=== PATIENT | female | born 1930 | race Caucasian/White ===

== ENCOUNTER 2017-03-02 16:41 | Emergency (ER) | payer MEDICARE ==
[~2017-03-02] VITALS: Ht 162.6 cm; Wt 61.8 kg
[~2017-03-02 16:41] MED LIST: LEVO88TA4 PO; LORA0.5T PO; METO25TA6 PO; OMEP20CA11 PO; ONDA-53 PO; PROM25TA14 PO; RANI300T4 PO; SERT50TA9 PO; SIMV40TA5 PO; TRAM50TA2 PO; TRAZ-115 PO
[2017-03-02 16:44] VITALS: BP 198/93; PULSE 85; RESP 20; O2SAT 99
== END 2017-03-02 19:25 | disposition left against medical advice (07) ==
LOC: SED 16:41
DX: Z53.21 Procedure and treatment not carried out due to patient leaving prior to being seen by health care provider (principal)

== ENCOUNTER 2017-03-03 08:27 | Emergency (ER) | payer MEDICARE ==
[~2017-03-03] VITALS: Ht 160 cm; Wt 61.4 kg
[2017-03-03 08:34] VITALS: BP 176/82; PULSE 94; RESP 16; O2SAT 99
--- NOTE | 2017-03-03 09:03 | ED.REPORT ---
HPI-General Illness Date of Service Mar 03, 2017 ED Provider: Dr. Wolf Pt is an 86 year old female with a hx of CAD and HTN presenting to the ED complaining of malaise. She reports that she has had anxiety for the past few months. Her PCP put her on Lorazepam for the anxiety, but about 2 weeks ago she stopped taking it and now reports shaking, nausea, diarrhea (3-4 episodes), and a bit of abdominal pain. She stopped the Lorazepam because she found out it was a controlled substance. Denies any chest pain, SOB, vomiting, bloody stool, or any other symptoms. Nursing Notes Stated Complaint: NAUSEA/WITHDRAWAL Chief Complaint: Female Abdominal Pain Nursing Notes Reviewed: Yes Allergies: Coded Allergies: amoxicillin (Verified Allergy, Mild, LIPS BLISTER, 01/27/16) Scheduled Levothyroxine (Levothyroxine) 88 Mcg Tablet 88 MCG PO DAILY Metoprolol Tartrate (Metoprolol Tartrate) 25 Mg Tablet 25 MG PO BID Omeprazole (Omeprazole) 20 Mg Capsule.dr 20 MG PO DAILY Sertraline HCl (Sertraline) 50 Mg Tablet 50 MG PO DAILY Simvastatin (Simvastatin) 40 Mg Tablet 40 MG PO DAILY Trazodone (Trazodone) 50 Mg Tablet 150 MG PO HS Scheduled PRN Lorazepam (Lorazepam) 0.5 Mg Tablet 0.5 MG PO Q12H PRN PRN For Anxiety Ondansetron (Ondansetron) 4 Mg Tablet 4 MG PO Q6H PRN PRN For Nausea Promethazine (Promethazine) 25 Mg Tablet 25 MG PO TID PRN PRN For Nausea Promethazine (Promethazine) 25 Mg Tablet 12.5 MG PO Q6H PRN PRN For Nausea Ranitidine (Ranitidine) 300 Mg Tablet 300 MG PO DAILY PRN PRN For Epigastric Distress Tramadol (Tramadol) 50 Mg Tablet 50 MG PO Q4H PRN PRN For Pain General Time Seen by MD: 09:02 Chief Complaint Other (Nausea) Hx Obtained From: Patient Arrived By: Walk-in Sudden in Onset?: No Onset Occurred: More than a week ago... (2 weeks) Symptom Duration: Since onset Severity: Current: No pain currently Severity: Maximum: No pain Recent Healthcare: No recent doctor visit, No recent hospitalization Similar Sx Previous: No Past Medical History Past Medical History Reports: Coronary artery disease, Hypertension Past Surgical History Cardic Stent Reports: Appendectomy Reports: Tubal ligation Social History Alcohol Use: "Social" Drug Use: Denies drug use Other Social History: Good social support, Local resident Ambulatory Status Independent Review of Systems Full Review of Systems Constitutional: Reports: Malaise Respiratory: Denies: Shortness of breath Cardiovascular: Denies: Chest pain GI: Reports: Abdominal pain, Diarrhea, Nausea, Denies: Bloody/tarry stool, Vomiting Complete sys rev & neg: except as marked. Physical Exam Vital Signs Vital Signs Date Time Temp Pulse Resp B/P Pulse Ox O2 Delivery O2 Flow Rate FiO2 03/03/17 08:34 36.4 94 16 176/82 99 Room Air Initial VS: Reviewed Head / Eyes: Atraumatic, Normocephalic, PERRL ENT: Mucous membranes moist, Conjunctiva normal, No scleral icterus Neck: Supple, Non-tender, Full range of motion Respiratory: Breath sounds normal, Clear to auscultation, No respiratory distress Cardiovascular: Regular rate & rhythm, Heart sounds normal, Intact distal pulses Abdomen / GI: Soft, Non-tender, No guarding, No rebound, No distention Extremities: Vascular intact, Neuro intact, No swelling, No tenderness Skin: Warm, Dry, No cyanosis Neurologic: Alert, Oriented, Nonfocal General/Constitutional: Awake, Alert, Well appearing Distress / Hydration: Positive: Distress mild Psychiatric: Affect NL, Mood NL Abnormal Mood/Affect: Positive: Anxious Agitated Interpretation & Diagnostics Lab Results Interpretation Result Diagram: 03/03/17 1015 03/03/17 1015 Test 03/03/17 10:15 White Blood Count 7.4th/mm3 (3.8-10.1) Red Blood Count 4.12mil/mm3 (3.90-5.20) Hemoglobin 12.6g/dL (12.0-15.6) Hematocrit 36.0% (35.0-46.0) Mean Corpuscular Volume 87.4fL (81-100) Mean Corpuscular Hemoglobin 30.6pg (27.0-35.0) Mean Corpuscular Hemoglobin Concent 35.0% (32.0-37.0) Red Cell Distribution Width 13.0% (12.3-15.4) Platelet Count 303bil/L (150-400) Neutrophils (%) (Auto) 74.6% (40-74) Lymphocytes (%) (Auto) 17.8% (14-46) Monocytes (%) (Auto) 6.2% (4-12) Eosinophils (%) (Auto) 0.7% (0-5) Basophils (%) (Auto) 0.4% (0-3) Sodium Level 137mEq/L (134-144) Potassium Level 4.3mEq/L (3.5-5.2) Chloride Level 100mEq/L (97-108) Carbon Dioxide Level 22mmol/L (18-29) Blood Urea Nitrogen 19mg/dL (8-27) Creatinine 1.24mg/dL (0.57-1.00) Estimat Glomerular Filtration Rate 59mL/min (>59) Glucose Level 137mg/dL (60-99) Calcium Level 9.6mg/dL (8.5-10.1) Magnesium Level 2.1mg/dL (1.6-2.6) Total Bilirubin 0.5mg/dL (0.0-1.2) Aspartate Amino Transf (AST/SGOT) 30U/L (0-50) Alanine Aminotransferase (ALT/SGPT) 17U/L (0-32) Alkaline Phosphatase 63U/L (25-165) Total Protein 6.9g/dL (6.4-8.4) Albumin 4.4g/dL (3.4-5.0) Lipase 22U/L (13-60) Hold Sung Top Tube Received (Received) ECG Interpretation ECG Interpretation: LBBB. Time: 10:54 Interpreted by: ED physician Normal ECG Interpretation: Normal rate (78) Re-Eval/Medical Decision Med Decision/Clinical Course Symptoms sound most consistent with benzodiazepine withdrawal. Labs and EKG are unremarkable. Patient will be discharged. Time of Eval: 10:28 Patient Status: Condition improved Re-Evaluation/Progress Note: Pt still nauseated but is a little improved. Time of Eval: 11:40 Patient Status: Condition improved Re-Evaluation/Progress Note: Pt feels much more relaxed and her nausea is resolved. Discussed plan for discharge. Pt understands and agrees. 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 I think your symptoms are likely from not taking the Lorazepam. You have been given a lower dose of lorazepam to use until you are seen by her regular doctor to prevent withdrawal. Take Zofran as needed for your nausea, and call your primary care doctor tomorrow to refill your Lorazepam prescription. Return to the ER if you develop any new or worsening symptoms. Referrals: Rui Jolly MD (PCP) Scribe Attestation Portions of this note were transcribed by Raymond Ray. I, Dr. Wolf personally performed the history, physical exam and medical decision-making; I reviewed and confirmed the accuracy of the information in the transcribed note. Signed by: Kirti Morley, 03/03/2017 at 1200. copies to: Rui Jolly MD, Timothy S DO Mar 03, 2017 09:03 RAYMOND RAY Mar 03, 2017 09:34
[2017-03-03] MEDS ORDERED: LORazepam 0.5 mg Tablet PO ONE ×2 (09:30→10:00)
[2017-03-03 10:32] LABS: BASOPHILS % (AUTO) 0.4 % (0-3); EOSINOPHILS % (AUTO) 0.7 % (0-5); MONOCYTES % (AUTO) 6.2 % (4-12); Mean Corpuscular Hemoglobin 30.6 pg (27.0-35.0); Mean Corpuscular Volume 87.4 fL (81-100); NEUTROPHILS % (AUTO) 74.6 % (40-74); Platelet Count 303 bil/L (150-400)
[2017-03-03 10:50] LABS: Magnesium 2.1 mg/dL (1.6-2.6)
== END 2017-03-03 12:00 | disposition home or self-care (01) ==
LOC: SED 08:27
DX: R11.0 Nausea (principal); F13.230 Sedative, hypnotic or anxiolytic dependence with withdrawal, uncomplicated; I10 Essential (primary) hypertension; I25.10 Atherosclerotic heart disease of native coronary artery without angina pectoris; Z88.1 Allergy status to other antibiotic agents

== ENCOUNTER 2017-03-04 12:58 | Emergency (ER) | payer MEDICARE ==
[~2017-03-04] VITALS: Ht 162.6 cm; Wt 61.4 kg
[2017-03-04 13:14] VITALS: BP 146/99; PULSE 89; RESP 16; O2SAT 98
--- NOTE | 2017-03-04 13:23 | ED.REPORT ---
HPI-Medication Refill Date of Service Mar 04, 2017 ED Provider: Doris Zaidi History of Present Illness: in May. Having anxiety attacks, taking lorazapam since 10/2016. out of lorazapm, unsure of when she ran out. lives by self. Dr. Schaefer will not refill till the the 6. Nursing Notes Stated Complaint: ANXIETY,NAUSEA Chief Complaint: General Complaint Nursing Notes Reviewed: Yes Allergies: Coded Allergies: amoxicillin (Verified Allergy, Mild, LIPS BLISTER, 03/04/17) Scheduled Levothyroxine (Levothyroxine) 88 Mcg Tablet 88 MCG PO DAILY Metoprolol Tartrate (Metoprolol Tartrate) 25 Mg Tablet 25 MG PO BID Omeprazole (Omeprazole) 20 Mg Capsule.dr 20 MG PO DAILY Sertraline HCl (Sertraline) 50 Mg Tablet 50 MG PO DAILY Simvastatin (Simvastatin) 40 Mg Tablet 40 MG PO DAILY Trazodone (Trazodone) 50 Mg Tablet 150 MG PO HS Scheduled PRN Lorazepam (Lorazepam) 0.5 Mg Tablet 0.5 MG PO Q12H PRN PRN For Anxiety Ondansetron (Ondansetron) 4 Mg Tablet 4 MG PO Q6H PRN PRN For Nausea Promethazine (Promethazine) 25 Mg Tablet 25 MG PO TID PRN PRN For Nausea Promethazine (Promethazine) 25 Mg Tablet 12.5 MG PO Q6H PRN PRN For Nausea Ranitidine (Ranitidine) 300 Mg Tablet 300 MG PO DAILY PRN PRN For Epigastric Distress Tramadol (Tramadol) 50 Mg Tablet 50 MG PO Q4H PRN PRN For Pain General Time Seen by Provider: 13:23 Chief Complaint Ran out of medication Hx Obtained From: Patient Past Medical History Past Medical History Reports: Coronary artery disease, Hypertension Past Surgical History Cardic Stent Reports: Appendectomy Reports: Tubal ligation Social History Alcohol Use: "Social" Drug Use: Denies drug use Other Social History: Good social support, Local resident Occupation lives by self. Ambulatory Status Independent Review of Systems Basic Review of Systems Eyes: Vision NL, No discharge Hematologic: No bleeding, No bruising Psychiatric: Normal thought content Physical Exam Initial Vital Signs Vital Signs (First) Date Time Temp Pulse Resp B/P Pulse Ox O2 Delivery O2 Flow Rate FiO2 7/3/17 13:14 36.6 89 16 146/99 98 Room Air Initial VS: Reviewed, Vital signs normal General/Constitutional: Well-developed, Well-nourished Head / Eyes: Atraumatic, Normocephalic, PERRL ENT: Mucous membranes moist, Conjunctiva normal, No scleral icterus Neck: Supple, Non-tender, Full range of motion Respiratory: Breath sounds normal, Clear to auscultation, No respiratory distress Cardiovascular: Regular rate & rhythm, Heart sounds normal, Intact distal pulses Abdomen / GI: Soft, Non-tender, No guarding, No rebound, No distention Back: No CVA tenderness Lymphatic: No lymphadenopathy Extremities: Vascular intact, Neuro intact, No swelling, No tenderness Skin: Warm, Dry, No cyanosis Neurologic: Alert, Oriented, Nonfocal Psychiatric: Mood/affect normal, Behavior normal, Normal thought content General/Constitutional: Awake, Alert, No acute distress, Well appearing, Well developed, Well hydrated, Well nourished, Cooperative, Not toxic appearing Distress / Hydration: Positive: Distress mild Additional Notes: frequently requesting pill to make her feel better Respiratory / Chest: Atraumatic, Breath sounds NL, Breath sounds = bilat, No respiratory distress Cardiovascular: Heart rate NL, Regular rhythm, Heart sounds NL, No gallop Abdomen: Atraumatic, Soft, Non-tender, McBurney's non-tender Psychiatric: Affect NL, Mood NL, Not suicidal Interpretation & Diagnostics Drug Screen / Level Interp Urine drug screen neg Re-Evaluation & MDM Med Decision/Clinical Course discussed with SEmar, did not speak directly with Dr. Jolly. However, he sent a text message stating there will not be any early refills. Urine drug screen is negative for all drugs at this time. 86 year old female presents with refill request for ativan. Unable to state how long ago her medciation ran out, answers range form 10 to 12 days ago to yesterday. Patient Discharge & Departure Impression: Primary Impression: Medication refill Disposition: Home Additional Instructions: Dr Jolly does not want you to have a refill of the ativan until 03/06/2017. We can do a little visteral 25 mg up to 3 times a day for 2 days. Please discuss with Dr. Schaefer as to wether you should continue with this medication. You urine was negative for all drugs at this time. Can use zofran 4 mg up to 2 times a day if needed for any nausea. Please follow with Dr. Jolly as scheduled. Referrals: Rui Jolly MD (PCP) EDSupervising Provider for APC: Davon Brady MD copies to: Rui Jolly MD, Sue ARNP Mar 04, 2017 13:23
== END 2017-03-04 13:55 | disposition home or self-care (01) ==
LOC: SED 12:58
DX: Z76.0 Encounter for issue of repeat prescription (principal); F41.9 Anxiety disorder, unspecified; I11.9 Hypertensive heart disease without heart failure; I25.10 Atherosclerotic heart disease of native coronary artery without angina pectoris; Z95.5 Presence of coronary angioplasty implant and graft; Z88.0 Allergy status to penicillin

== ENCOUNTER 2017-04-01 10:04 | Inpatient (IN) | payer MEDICARE ==
[~2017-04-01] VITALS: Ht 162.6 cm; Wt 59.3 kg
[2017-04-01 10:11] VITALS: BP 124/63; PULSE 101; RESP 18; O2SAT 99
--- NOTE | 2017-04-01 10:51 | ED.REPORT ---
HPI-Extremity Problem Upper Date of Service Apr 01, 2017 ED Provider: Mariam Tai MD Patient is an 86 year old female with a history of hypertension, CAD, chronic nausea and anxiety who presents to the ED via EMS complaining of left arm pain. Associated symptoms include surrounding erythema, warmth, chills and dry heaves. Patient denies swelling. She reports that the wound has been getting progressively worse so she called EMS. The patient reports that her own cat "nipped" at her 2 days ago. She is unsure when her last tetanus was. Nursing Notes Stated Complaint: CAT BITE Chief Complaint: Extremity Trauma Nursing Notes Reviewed: Yes Allergies: Coded Allergies: amoxicillin (Verified Allergy, Mild, LIPS BLISTER, 03/04/17) Scheduled Aspirin (Aspirin) 81 Mg Tablet 81 MG PO DAILY Levothyroxine (Levothyroxine) 88 Mcg Tablet 88 MCG PO DAILY Metoprolol Tartrate (Metoprolol Tartrate) 25 Mg Tablet 25 MG PO BID Omeprazole (Omeprazole) 20 Mg Capsule.dr 20 MG PO DAILY Sertraline HCl (Sertraline) 50 Mg Tablet 50 MG PO DAILY Simvastatin (Simvastatin) 40 Mg Tablet 40 MG PO DAILY Trazodone (Trazodone) 50 Mg Tablet 150 MG PO HS Scheduled PRN Lorazepam (Lorazepam) 0.5 Mg Tablet 0.5 MG PO Q12H PRN PRN For Anxiety Promethazine (Promethazine) 25 Mg Tablet 25 MG PO TID PRN PRN For Nausea General Time Seen by MD: 10:46 Chief Complaint Arm injury left Hx Obtained From: Patient Arrived By: Walk-in Onset Occurred: 2 days ago Symptom Duration: Since onset Caused by: Animal bite (cat) Location: : Arm left Quality: Painful Immunizations: Unknown Recent Healthcare: Recent doctor visit Similar Sx Previous: No Past Medical History Past Medical History Reports: Coronary artery disease, Hypertension Past Surgical History Cardic Stent Reports: Appendectomy Reports: Tubal ligation Social History Alcohol Use: "Social" Drug Use: Denies drug use Other Social History: Local resident Occupation lives by self. Ambulatory Status Independent Review of Systems Review of Systems Note: +erythema +warmth +dry heaves Constitutional: Reports: Chills, Denies: Fever Musculoskeletal: Reports: Extremity pain (left arm) Skin: Denies Itching, Denies Rash, Denies Swelling Complete sys rev & neg: except as marked. Respiratory: Denies: Non-productive cough, Shortness of breath GI: Reports: Nausea (chronic), Denies: Vomiting Physical Exam Initial Vital Signs Vital Signs (First) Date Time Temp Pulse Resp B/P Pulse Ox O2 Delivery O2 Flow Rate FiO2 04/01/17 10:11 36.8 101 18 124/63 99 Room Air Initial VS: Reviewed General/Constitutional: Awake, Alert, No acute distress Neck: Atraumatic, Supple Respiratory / Chest: Atraumatic, Breath sounds NL, Breath sounds = bilat, No respiratory distress Cardiovascular: Heart rate NL, Regular rhythm Heart Sounds / Murmur: Positive: Systolic murmur present.. (III/) Upper Extremity / MS: Full range of motion, No swelling Left Forearm: Positive: Warmth present Trauma / Burn / Environmental: Positive: Bite injury 2cm puncture wound from cat bite with 12x5cm erythematous patch with lymphangitic spread up the inner left arm without axillary adenopathy Skin: Color NL, No rash, Warm, Dry Neurologic: Oriented X3, Speech NL, No motor deficits, No sensory deficits Head / Eyes: Atraumatic, Normocephalic, PERRL, EOMI Psychiatric: Affect NL, Mood NL Interpretation & Diagnostics Lab Results Interpretation Result Diagram: 04/01/17 1130 04/01/17 1130 Test 04/01/17 11:30 White Blood Count 24.5th/mm3 (3.8-10.1) Red Blood Count 4.10mil/mm3 (3.90-5.20) Hemoglobin 12.5g/dL (12.0-15.6) Hematocrit 35.9% (35.0-46.0) Mean Corpuscular Volume 87.6fL (81-100) Mean Corpuscular Hemoglobin 30.5pg (27.0-35.0) Mean Corpuscular Hemoglobin Concent 34.8% (32.0-37.0) Red Cell Distribution Width 13.1% (12.3-15.4) Platelet Count 258bil/L (150-400) Neutrophils (%) (Auto) 91.1% (40-74) Lymphocytes (%) (Auto) 3.3% (14-46) Monocytes (%) (Auto) 3.9% (4-12) Eosinophils (%) (Auto) 0% (0-5) Basophils (%) (Auto) 0.1% (0-3) Sodium Level 136mEq/L (134-144) Potassium Level 3.9mEq/L (3.5-5.2) Chloride Level 99mEq/L (97-108) Carbon Dioxide Level 19mmol/L (18-29) Blood Urea Nitrogen 28mg/dL (8-27) Creatinine 1.20mg/dL (0.57-1.00) Estimat Glomerular Filtration Rate 61mL/min (>59) Glucose Level 172mg/dL (60-99) Lactic Acid Level 1.4mmol/L (0.4-2.0) Calcium Level 8.7mg/dL (8.5-10.1) Total Bilirubin 0.6mg/dL (0.0-1.2) Aspartate Amino Transf (AST/SGOT) 24U/L (0-50) Alanine Aminotransferase (ALT/SGPT) 14U/L (0-32) Alkaline Phosphatase 55U/L (25-165) Total Protein 6.8g/dL (6.4-8.4) Albumin 4.1g/dL (3.4-5.0) Procalcitonin 1.75ng/mL (0.00-0.08) Re-Eval/Medical Decision Re-Evaluation/Progress #1: Time of Eval: 11:11 Re-Evaluation/Progress Note: Discussed plan for IV antibiotics and blood work. Re-Evaluation/Progress #2: Time of Eval: 11:18 Re-Evaluation/Progress Note: Patient states that her Amoxicillin reaction was minor, with her only symptom being a small blister on her lip. Patient agreed to try IV ampicillin sodium/sulbactam sodium with close watch for reaction. Re-Evaluation/Progress #3: Time of Eval: 12:35 Re-Evaluation/Progress Note: Discussed results and plan for admit. Patient understands and agrees to plan. All questions were addressed. Consultation : Referral / Consult Name: Susana Stovall MD Consulted With: Hospitalist Call Returned at: 12:50 Net Web Application Developer: Agrees with eval, Agrees with plan, Accepts admit Counseled Regarding: Diagnosis, Lab results, Need for admission Discharge & Departure Impression: Primary Impression: Cellulitis Site of cellulitis: extremity Site of cellulitis of extremity: upper extremity Laterality: right Qualified Code: L03.113 - Cellulitis of right upper limb Additional Impression: Cat bite involving extremity Disposition: ADMITTED TO HOSPITAL Discharge Condition All VS Reviewed: Yes Condition: Stable Referrals: Rui Jolly MD (PCP) Kirti Attestation Portions of this note were transcribed by Elza Baird. I, Dr. Tai personally performed the history, physical exam and medical decision-making; I reviewed and confirmed the accuracy of the information in the transcribed note. Signed by: Kirti Esposito, 04/01/17 copies to: Rui Jolly MD, Shawna L MD Apr 01, 2017 10:51 Nupur Baird Apr 01, 2017 10:56
[2017-04-01] MEDS ORDERED: TdaP Vaccine 0.5 mL Inj IM ONE (11:20)
[2017-04-01] MEDS ORDERED: Ampicillin-Sulbactam Inj 3,000 MG in 0.9% Sodium Chloride 100 ML IV ONE (11:20)
[2017-04-01 11:44] LABS: BASOPHILS % (AUTO) 0.1 % (0-3); EOSINOPHILS % (AUTO) 0 % (0-5); MONOCYTES % (AUTO) 3.9 % (4-12); Mean Corpuscular Hemoglobin 30.5 pg (27.0-35.0); Mean Corpuscular Volume 87.6 fL (81-100); NEUTROPHILS % (AUTO) 91.1 % (40-74); Platelet Count 258 bil/L (150-400)
[2017-04-01] MEDS ORDERED: Ondansetron 2 mg/mL 2 mL Inj IVPUSH PRN (12:30)
[2017-04-01 12:54] VITALS: BP 151/72; PULSE 89; RESP 16; O2SAT 100
[2017-04-01 12:55] VITALS: BP 151/72; PULSE 89; RESP 16; O2SAT 100
--- NOTE | 2017-04-01 13:06 | PCM.HPMED ---
Subjective Date of Service Apr 01, 2017 Primary Provider: Admitting Physician: Primary Care Physician: Rui Jolly MD Attending Physician: Chief Complaint: Left forearm pain after cat bite History of Present Illness: 86 year old female with a history of hypertension, CAD, chronic nausea and anxiety presented after having cat bite 2 days ago, worsening pain and redness on the left forearm. Patient was in usual state of health until 2 days ago, playing with her 2-year-old domestic cat, had mild nipping when she was playing , then she started feeling swelling and redness, tenderness,called EMS today. Last night, patient had multiple dry heaving without vomiting, which is unusual for her. Denied any abdominal pain or bowel habit changes. pt denied having fever or chills. Patient has 2 dogs and 3 cats and a cat who biten was 2yr old , likely vaccinated, didn't behave abnormally, never been outside. pt does not remember when she had last tetanus shot. ED VS mildly [id number], BP stable, afebrile,labs showed wbc24.5, poly91.1. pt received 1 dose of Unasyn 3 g iv despite reported allergy amoxicillin, no allergic response was observed. During the interview, she was very concerned about her pets, otherwise denied any complaints, of note patient is taking antinausea medicine for chronic nausea , rarely had vomiting. ROS: No fever, chills, cough, sputum, n/v/d, sick contacts, travel, lives alone Review of Systems: Pertinent positives as noted in history of present illness. All other systems were reviewed and are negative Allergies Coded Allergies: amoxicillin (Verified Allergy, Mild, LIPS BLISTER, 03/04/17) Home Medications Scheduled Levothyroxine (Levothyroxine) 88 Mcg Tablet 88 MCG PO DAILY Metoprolol Tartrate (Metoprolol Tartrate) 25 Mg Tablet 25 MG PO BID Omeprazole (Omeprazole) 20 Mg Capsule.dr 20 MG PO DAILY Sertraline HCl (Sertraline) 50 Mg Tablet 50 MG PO DAILY Simvastatin (Simvastatin) 40 Mg Tablet 40 MG PO DAILY Trazodone (Trazodone) 50 Mg Tablet 150 MG PO HS Scheduled PRN Lorazepam (Lorazepam) 0.5 Mg Tablet 0.5 MG PO Q12H PRN PRN For Anxiety Ondansetron (Ondansetron) 4 Mg Tablet 4 MG PO Q6H PRN PRN For Nausea Promethazine (Promethazine) 25 Mg Tablet 25 MG PO TID PRN PRN For Nausea Promethazine (Promethazine) 25 Mg Tablet 12.5 MG PO Q6H PRN PRN For Nausea Ranitidine (Ranitidine) 300 Mg Tablet 300 MG PO DAILY PRN PRN For Epigastric Distress Tramadol (Tramadol) 50 Mg Tablet 50 MG PO Q4H PRN PRN For Pain PMH Social History Hx Alcohol Use: No Hx Substance Use: No Hx Tobacco Use: No Exam Vital Signs Vital Sign - Last Date Time Temp Pulse Resp B/P Pulse Ox O2 Delivery O2 Flow Rate FiO2 04/01/17 12:55 36.5 89 16 151/72 100 Room Air Exam NAD, comfortably laying down on the bed no JVD, MMM, no LAD RRR, nl s1, s2 no mrg CTAB, no w,c S,ND,NT,normoactive BS+ warm, no edema, pulses 2/2 Left forearm: volar surface distal to elbow joint, opened superficial sharp wound surrounding diffuse erythema, clear demarcation, mildly tender and edematous, no fluctuance Lab and Diagnostics Result Diagram: 04/01/17 1130 04/01/17 1130 Assessment & Plan 86 year old female with a history of hypertension, CAD, chronic nausea and anxiety presented after having cat bite 2 days ago, worsening pain and redness on the left forearm. Acute, active Left forearm cellulitis from cat bite, POA, partially met SIRS 2/4, HR/wbc, pt was started on Unasyn in ED, presumably to cover P.Multocida, anaerobes. no risk of Rabies -continue Unasyn 3g q6h iv, appreciate ID input, -tdap ordered in ED, -awaits BCX, trends PCT, fever, wbc -MRSA swab ELVIN, POA, likely prerenal given dry heavings, cr1.20 on admission -zofran for n/v -renally adjust meds, avoid renal toxins Chronic, stable chronic n/v, continue anti-nausea med as above CAD, continue aspirin, home med HTN resume home meds after med rec dispo:Patient will be admitted with inpatient status with expectation of inpatient therapy for more than 2 midnights diet:general dvt ppx:HSQ q12h Full code Time spent 35min Susana Stovall MD Apr 01, 2017 13:06
[2017-04-01] MEDS: 0.9% Sodium Chloride 1,000 ML IV SCH (13:42)
[2017-04-01 13:48] VITALS: BP 162/72; PULSE 80; RESP 18; O2SAT 99
[2017-04-01] MEDS ORDERED: ASPI-973 PO (14:19)
[2017-04-01] MEDS: LORazepam 0.5 mg Tablet PO PRN (15:52)
--- NOTE | 2017-04-01 18:15 | NUR ---
Admit/Arm redness Pt. [place] [facility] [place] 1320 in stable condition. Med rec and admit completed. Around 1500, pt. stated her arm appeared a little more red. On examination, the lower forearm was completely red, with faint red lines radiating upwards towards the axillary area. I mapped this out with permanent marker and paged and notified the MD. Pt. denies any pain in her arm. I rechecked the redness at 1600, and it appeared unchanged. Will continue to closely monitor.
[2017-04-01] MEDS: Ampicillin-Sulbactam Inj 3,000 MG in 0.9% Sodium Chloride 100 ML IV SCH (18:23)
[2017-04-01] MEDS: Heparin 5,000 Unit/mL Inj SUBQ SCH (20:36)
[2017-04-01 21:16] VITALS: BP 125/60; PULSE 73; RESP 18; O2SAT 95
--- NOTE | 2017-04-01 22:23 | CONS ---
[address] [address] CONSULTATION REPORT PATIENT: DAVID MONTEIRO : 1930 MR#: [id number] ADMIT: 04/01/2017 JOB ID: [id number] DATE OF SERVICE: 04/01/[address] Stovall for this timely consult. REASON FOR CONSULTATION: Cat bite left arm with severe cellulitic changes and leukocytosis. HISTORY OF PRESENT ILLNESS: The patient is a reasonably healthy 86-year-old woman who lives independently at the [facility] here in [facility]. She reports she was in her usual state of reasonably good health until a couple days ago when she was bitten on the left upper arm by her cat while they were playing. She notes she has three cats but only one of them is prone to nipping, and that is the one that got her. Initially, she did not think much about it, but gradually developed erythema and some tenderness which started to extend up and down her arm from the bite site. This was associated with nausea and profound dry heaves with anorexia. Surprisingly, there were no fevers, chills or sweats associated with this, nor was there any pulmonary symptomatology, nor any diarrhea or genitourinary complaint. The patient eventually presented to the emergency department today primarily because of the erythema and warmth in the arm, as well as the profound nausea with dry heaves. She told the emergency department doctor she gets chills, though she tells me she did not, but this is probably just of her being able to remember what was going on earlier today when she was in the emergency department. In any event, the patient was admitted to the emergency department today and Dr. Stovall has asked me to comment on the antibiotics. The patient reports she has a history of AMOXICILLIN allergy. She states she developed some very small sores in her mouth while she was treated with amoxicillin some years ago. The emergency department was not deterred by this history, however, and started giving the patient Unasyn, which has been continued after admission. So far, she has had no oral complaint or anything else related to a couple doses of Unasyn she has received so far. PAST MEDICAL HISTORY: 1. Hypertension. 2. Coronary artery disease status post stent. 3. GERD. 4. Hyperlipidemia. 5. Status post appendectomy. SOCIAL HISTORY: The patient lives at [place]. Her a couple years ago. She worked for many years for the [employer] and her also worked for the [email or web address] and they eventually traveled a lot and had a good time before settling in [place], but unfortunately he of cancer about two years ago. She now lives with three cats, one of whom is a nipper, and one dog. She has three sons and 19 grandchildren and great-grandchildren combined. She is a nonsmoker, nondrinker. Does not use any illicit drugs. FAMILY HISTORY: Notable for a distant uncle who she did not have much contact with who had TB, otherwise negative. REVIEW OF SYSTEMS: Was done. At this point, the patient has no headache, visual change or sore throat. No significant cough, shortness of breath or chest pain. She does have profound nausea, anorexia and occasional dry heaves. No diarrhea. No dysuria, urgency, or frequency. No swelling anywhere except in her left upper extremity where she has progressive redness and tenderness. Remainder of the review of systems is negative. PHYSICAL EXAMINATION: Reveals an afebrile woman. Temp 36.7, pulse 73, respiratory rate 18. Blood pressure 125/60. She is saturating well on room air in no acute distress. Mental status is completely normal. Mood and affect completely normal. Head without trauma. Eyes without conjunctivitis. Oral cavity: No thrush or hairy leukoplakia. The neck is supple without adenopathy or JVD. The lungs are clear. Cardiac tones 2/6 murmur heard best along the left lower sternal border, which the patient says she has had for a long time. The abdomen is soft and nontender without organomegaly. There is no suprapubic fullness. No Hernandes catheter. No inguinal adenopathy. As mentioned, she does not have a Hernandes. The lower extremities are without synovitis, cellulitis or edema. She has excellent strength and normal sensation in all four extremities. The left upper extremity is the only notable abnormality on physical. She has a confluent cellulitis which seems to have originated somewhere in the medial arm around the elbow and which extends almost all the way up to the axilla, but not quite, and about nursing home down the forearm. This area of involvement is erythematous, warm and mildly tender to palpation, though not severely so. There is no bullae formation or sloughing of the skin. There is no associated axillary adenopathy on the left side and she has full range of motion of the elbow, hand and shoulder. LABORATORIES: Include white blood count 24,000 with a pronounced left shift 91% segs. Creatinine 1.2. LFTs entirely normal. Procalcitonin 1.75. Micro includes two sets of blood cultures which are pending. No x-rays were done today. Current antibiotics include Unasyn 3 g q.6 h. She received a dose this morning just before noon in the emergency department and another about 6 p.m. tonight, otherwise no other antibiotics. IMPRESSION: This patient sustained a cat bite about two days ago and has a rapidly progressive cellulitis associated with nausea, vomiting and perhaps some chills. She does not look systemically ill at all and would probably not have been admitted except for the dramatic elevation of her white count, which I think was a good reason to admit this 86-year-old woman. At this point, I suspect she will turn around quickly with IV Unasyn, which is the preferred drug for these sorts of infections, and we can then transition to oral therapy. The only difficult part of this case is her AMOXICILLIN allergy. Knowing about the small sores on the lower lip with the prior course of amoxicillin I would probably not have given her Unasyn, but she has now received two doses and has had no untoward effects whatsoever. At this point, I think it is reasonable to continue and observe her with a possible transition to either oral Augmentin or oral moxifloxacin as she improves. RECOMMENDATIONS: 1. Continue cautiously with Unasyn at this point. 2. I would continue to check a CBC on a daily basis, and as her white count moderates and her overall clinical performance improves, she can be discharged on oral antibiotics in the very near future. 3. All the patient's questions were answered. Thank you very much for this consult.
[2017-04-02] MEDS: Ampicillin-Sulbactam Inj 3,000 MG in 0.9% Sodium Chloride 100 ML IV SCH ×5 (01:12→23:52)
[2017-04-02] MEDS: 0.9% Sodium Chloride 1,000 ML IV SCH (01:12)
--- NOTE | 2017-04-02 04:14 | NUR ---
CELLULITITS Patient's arm redness slightly moved beyond lines drawn and under forearm became a little more swollen. Continuing to watch closely. Receiving antibiotics. Appears to be resting well.
[2017-04-02 05:55] VITALS: BP 140/67; PULSE 76; RESP 19; O2SAT 96
[2017-04-02] MEDS: Pantoprazole 20 mg ER24 Tablet PO SCH (06:02)
[2017-04-02 06:40] LABS: BASOPHILS % (AUTO) 0.2 % (0-3); EOSINOPHILS % (AUTO) 0.3 % (0-5); MONOCYTES % (AUTO) 3.5 % (4-12); Mean Corpuscular Hemoglobin 29.9 pg (27.0-35.0); Mean Corpuscular Volume 88.5 fL (81-100); NEUTROPHILS % (AUTO) 82.9 % (40-74); Platelet Count 210 bil/L (150-400)
[2017-04-02 07:27] LABS: Magnesium 1.7 mg/dL (1.6-2.6); Phosphorus 2.6 mg/dL (2.5-4.9)
[2017-04-02 08:05] VITALS: BP 161/61; PULSE 75; RESP 18; O2SAT 95
[2017-04-02] MEDS: Heparin 5,000 Unit/mL Inj SUBQ SCH ×2 (08:25→20:56)
--- NOTE | 2017-04-02 09:25 | PCM.PNMED ---
Subjective Date of Service Apr 02, 2017 Subjective erythema and pain significantly improved, tolerated Unasyn well, continued per denied n/v, chills, remained afebrile, wbc trending down, IVF [id number], stopped this AM Exam Vital Signs Vital Sign - Last Date Time Temp Pulse Resp B/P Pulse Ox O2 Delivery O2 Flow Rate FiO2 04/02/17 08:05 36.6 75 18 161/61 95 Room Air Intake and Output 04/01/17 04/01/17 04/02/17 Cumulative From/Thru 15:00 23:00 07:00 04/01/17 10:11 - 04/02/17 06:37 Intake Total 730 ml 1676 ml 2406 ml Output Total 200 ml 200 ml 400 ml Balance 530 ml 1476 ml 2006 ml Intake Oral 400 ml 500 ml 900 ml IV Total 330 ml 1176 ml 1506 ml Output Urine Total 200 ml 200 ml 400 ml # Bowel Movements 0 0 0 Exam NAD, comfortably laying down on the bed no JVD, MMM, no LAD RRR, nl s1, s2 no mrg CTAB, no w,c S,ND,NT,normoactive BS+ warm, no edema, pulses 2/2 Left forearm: volar surface distal to elbow joint, opened superficial sharp wound surrounding diffuse erythema, mildly tender and edematous, no fluctuance. tracking up to Left axillary, mildly tender axillary LAD. Overall significantly improved erythema, tenderness, edema compared to prior day IVs and Medications Medications Reviewed: Medications were reviewed in detail Lab and Diagnostics Result Diagram: 04/02/17 0555 04/02/17 0555 Assessment & Plan 86 year old female with a history of hypertension, CAD, chronic nausea and anxiety presented after having cat bite 2 days ago, worsening pain and redness on the left forearm. Acute, active Left forearm cellulitis from cat bite, POA, partially met SIRS 2/4, HR/wbc, pt was started on Unasyn in ED, presumably to cover P.Multocida, anaerobes. no risk of Rabies pt received tdap on admission. -pt clinically improving without adverse reaction -continue Unasyn 3g q6h iv as per , -awaits BCX, trends PCT, fever, wbc -MRSA swab ELVIN vs CKD, POA, thought to be prerenal given dry heavings, cr1.20 on admission , -Cr mildly worse 1.28 today, will stop IVF and monitor, -zofran for n/v -renally adjust meds, avoid renal toxins Chronic, stable chronic n/v, continue anti-nausea med as above CAD, continue aspirin, home med HTN resume home meds dispo:likely 2-3more days on iv abx, follow up with ID diet:general dvt ppx:HSQ q12h Full code Time spent 35min Susana Stovall MD Apr 02, 2017 09:25
--- NOTE | 2017-04-02 13:56 | PROG NOTE ---
[address] [address] PROGRESS NOTE PATIENT: DAVID MONTEIRO : 1930 MR#: [id number] ADMIT: 04/01/2017 JOB ID: [id number] DATE: 04/02/2017 INFECTIOUS DISEASE FOLLOWUP NOTE: REASON FOR FOLLOWUP: Cat bite. INTERVAL HISTORY: Overnight, the patient reports no fevers, chills, or sweats. She is not having shortness of breath, chest pain, nausea, or vomiting. She notes that her left arm redness and pain are gradually diminishing and overall, she is much improved. She feels she can be discharged tomorrow. PHYSICAL EXAMINATION: Reveals an afebrile woman. Temperature 36.6, pulse 75, respiratory rate 18, blood pressure 161/61, saturating 95% on room air. She is in no distress at all. Awake, alert, conversational and telling jokes. Oral cavity negative. No oral lesions or sores are appreciated. There is no hint of a skin rash consistent with a drug rash. Lungs are clear. Cardiac tones without new murmur. Her left upper extremity cellulitis is much improved in that it is starting to recede and becoming less and less erythematous and less tender. There is minimal warmth present in the area of cellulitis at this point. LABORATORY STUDIES: Include white count down from 24,000 to 14,000 overnight. Procalcitonin is actually rising from 1.75 to 2.5. Creatinine 1.28. Micro studies include negative blood cultures. No new imaging is available. IMPRESSION: The patient has a cat bite with associated cellulitis. Clinically, she is improving even as her procalcitonin has bumped a bit. Yesterday, I expressed concern about the fact we are using Unasyn in a patient with an AMOXICILLIN intolerance, which reportedly consisted of sores along the lower gumline some years ago. At this point, she is continuing to tolerate Unasyn, and I have discussed this with the pharmacist. I think it is reasonable to cautiously proceed with a plan to switch to moxifloxacin if there are problems. RECOMMENDATIONS: 1. Will continue with the Unasyn. 2. I would check a procalcitonin and CBC again in the morning. If the white count is continuing to drop and the procalcitonin is stabilized or dropped, I think we will probably discharge her tomorrow either on oral Augmentin or oral moxifloxacin.
--- NOTE | 2017-04-02 14:44 | NUR ---
spiritual care: pt request Visited with pt today who was very anxious because of her animals left at home. She has a dog and three cats. The dog is at a boarding facility but the cats are at home with periodic check ups from staff at her residential facility. We spoke of anxiety, family and henry. Pt wanted to be put on the list for our [facility] visitors so I put her on the list. Prayed with pt before leaving the room. Spiritual care will continue to follow as needed.
--- NOTE | 2017-04-02 16:35 | NUR ---
Pain/cellulitis The pt's cellulitis did not advance beyond the marked borders on this shift- pain reported as minimal with only needing PO tylenol once. Per Dr. Love, the pt may be ready to DC tomorrow on PO ABX
[2017-04-02 17:05] VITALS: BP 169/62; PULSE 80; RESP 20; O2SAT 94
--- NOTE | 2017-04-02 17:09 | NUR ---
Social Work-initial assessment: Data:see initial assessment. Pt is a 86 y/o female who was admitted on 04/01/17 for left arm per H&P. Pt's insurance is [employer] and PCP is Rui Jolly MD. EMR Reviewed. Pt's readmission score is 4-high risk. SW met with pt at bedside, SW role explained. Pt is alert and oriented x3. Pt resides at [facility] where she remains independent with ADLs. Pt drives and does not use any DME, but has a cane or fww at baseline. Pt has no HH or SNF history. Pt has no terminologist care insurance or VA benefits. SW discussed DPOA/ advanced directive, pt confirms she has completed this, SW encouraged a copy to be brought in. Per RN notes, pt has been up independent in her room. No concerns noted around pt's ability for self care. Pt to remain on IV abx and then discharge once completed. SW provided pt with discharge planning checklist and encouraged pt to call with questions, phone number provided pt. Pt states her family will provide transport home. No discharge needs identified. SW will continue to follow if needs arise. Assessment:Pt who is independent at baseline. Plan:Pt to discharge back to [facility] when medically stable via POV. No discharge needs identified. SW will continue to follow if needs arise. ARNOL Diego Addendum: 04/02/17 at 1715 by DOREEN DÍAZ SS Amended: Links added.
[2017-04-02 20:23] VITALS: BP 176/71; PULSE 75; RESP 20; O2SAT 95
[2017-04-03 04:45] VITALS: BP 188/84; PULSE 80; RESP 19; O2SAT 95
[2017-04-03 05:23] VITALS: BP 174/74; PULSE 75
[2017-04-03] MEDS: Ampicillin-Sulbactam Inj 3,000 MG in 0.9% Sodium Chloride 100 ML IV SCH ×2 (06:06→11:58)
[2017-04-03] MEDS: Pantoprazole 20 mg ER24 Tablet PO SCH (06:09)
--- NOTE | 2017-04-03 06:29 | NUR ---
NOC Activity Pt has been alert and oriented. Denies chest pain, sob, n/v or abd discomfort. LUE cellulitis, noted heat and swollen on site. ABx administered as scheduled. Pt has been having elevated BP. MD notified and aware. No further orders. Will continue to monitor.
[2017-04-03 07:25] LABS: BASOPHILS % (AUTO) 0.2 % (0-3); MONOCYTES % (AUTO) 4.8 % (4-12); Mean Corpuscular Volume 87.9 fL (81-100); NEUTROPHILS % (AUTO) 78.5 % (40-74); Platelet Count 217 bil/L (150-400)
[2017-04-03] MEDS: Heparin 5,000 Unit/mL Inj SUBQ SCH (08:24)
--- NOTE | 2017-04-03 09:39 | PROG NOTE ---
[address] [address] PROGRESS NOTE PATIENT: DAVID MONTEIRO : 1930 MR#: [id number] ADMIT: 04/01/2017 JOB ID: [id number] DATE: 04/03/2017 REASON FOR FOLLOWUP: Cat bite with cellulitis. INTERVAL HISTORY: The patient reports that her left arm continues to improve. She has had no significant limitation of motion there. Minimal tenderness or swelling. She denies systemic fevers, chills, or sweats and reports she is getting close to her normal state of health. PHYSICAL EXAMINATION: Reveals an afebrile woman temp 37.1, pulse 75, respiratory rate 19, blood pressure 174/74. She is in no acute distress. Alert and oriented and once again making jokes. Oral cavity negative. Lungs clear. Cardiac tones without new murmur. Left upper extremity cellulitis much improved. No longer warm nor tender, though there is considerable fading erythema. LABORATORIES: Today white count down to 11,800 from 24,000 just a couple days ago. The diff in the white count has also normalized and her creatinine is down to 1.18. Albumin 3.3. Procalcitonin has dropped from 2.5 yesterday to 1.5 today. Micro studies include negative blood cultures. We have no new imaging. IMPRESSION: This patient seems to be steadily improving with respect to her cat bite associated cellulitis. We are still using Unasyn even though the patient has a distant history of some lip lesions, which she thought might be due to amoxicillin. At this point, there is absolutely no indication of any toxicity. RECOMMENDATIONS: 1. I would continue with Unasyn while she is in the hospital. 2. I think the patient could be discharged today on oral Augmentin 875 p.o. b.i.d. to complete a total 10 day course which would be about one more week of Augmentin. 3. The patient was given my card, and she can follow up with me or with Dr. Rui Jolly if this fails to resolve as we think it will. 4. ID will go ahead and sign off on this patient as I suspect she will be discharged today.
[2017-04-03] MEDS: LORazepam 0.5 mg Tablet PO PRN (09:59)
--- NOTE | 2017-04-03 13:37 | PCM.DIMED ---
Discharge Instructions Date of Service Apr 03, 2017 Dates of Hospitalization Apr 01, 2017 at 13:00 Discharge Diagnosis Discharge Diagnosis Left forearm cellulitis secondary to cat bite Diet Discharge Diet: Heart Healthy Activity Discharge Activity: No restrictions Call your provider Call your provider for: Fever or Chills, Weakness (unilateral) Patient Instructions Follow-up Provider: Rui Jolly MD Follow-up with PCP in: Other (early next week ,sooner if problems) Hanny Montalvo MD Apr 03, 2017 13:37
[2017-04-03] MEDS ORDERED: AMOX-366 PO (13:42)
[2017-04-03] MEDS ORDERED: LACT0.5T PO (13:42)
--- NOTE | 2017-04-03 13:47 | NUR ---
Social Work-discharge: Data:EMR reviewed. Pt is on day 2 of hospitalization for left arm cellulites per H&P. Pt is medically stable for discharge home today. Pt has been up independent in her room. Pt to return to [facility] living. No anticipated discharge needs. SW will continue to follow if needs arise. Assessment:Pt who is independent at baseline. Plan:Pt to discharge back to [facility] today via POV. No anticipated discharge needs. SW will continue to follow if needs arise. ARNOL Diego
--- NOTE | 2017-04-03 14:37 | NUR ---
Discharge: Patient discharged to home @ approx 1430. IV d/c'd intact. Personal belongings sent home with patient. Reviewed new prescriptions, home medication list, d/c instructions and follow up appointments. Verbalized understanding. Escorted to main entrance via wheelchair accompanied by TRANSLATIONAL SPECIALIST. No apparent distress noted at time of discharge.
--- NOTE | 2017-04-03 16:47 | PCM.DC.MED ---
Discharge Summary Date of Service Apr 03, 2017 Dates of Hospitalization Date of Hospital Admission Apr 01, 2017 at 13:00 Date of Discharge: Apr 03, 2017 Providers: Admitting Physician: Susana Stovall MD Primary Care Physician: Rui Jolly MD Attending Physician: Susana Stovall MD Diagnosis at Time of Discharge Diagnosis at Time of Discharge Left forearm cellulitis secondary to cat bite Consultations Infectious disease Brief History 86 year old female with a history of hypertension, CAD, chronic nausea and anxiety presented after having cat bite 2 days ago, worsening pain and redness on the left forearm. Patient was in usual state of health until 2 days ago, playing with her 2-year-old domestic cat, had mild nipping when she was playing , then she started feeling swelling and redness, tenderness,called EMS today. Last night, patient had multiple dry heaving without vomiting, which is unusual for her. Denied any abdominal pain or bowel habit changes. pt denied having fever or chills. Patient has 2 dogs and 3 cats and a cat who biten was 2yr old , likely vaccinated, didn't behave abnormally, never been outside. pt does not remember when she had last tetanus shot. ED VS mildly [id number], BP stable, afebrile,labs showed wbc24.5, poly91.1. pt received 1 dose of Unasyn 3 g iv despite reported allergy amoxicillin, no allergic response was observed. During the interview, she was very concerned about her pets, otherwise denied any complaints, of note patient is taking antinausea medicine for chronic nausea , rarely had vomiting. ROS: No fever, chills, cough, sputum, n/v/d, sick contacts, travel, lives alone Hospital Course 86 year old female with a history of hypertension, CAD, chronic nausea and anxiety presented after having cat bite 2 days ago, worsening pain and redness on the left forearm. Acute, active Left forearm cellulitis from cat bite, POA, partially met SIRS 2/4, HR/wbc, pt was started on Unasyn in ED, presumably to cover P.Multocida, anaerobes. no risk of Rabies pt received tdap on admission. -pt clinically improving without adverse reaction -As per Dr. Love patient from his perspective could be discharged to home on Augmentin for 7 days, -awaits BCX, trends PCT, fever, wbc ELVIN vs CKD, POA, thought to be prerenal given dry heavings, cr1.20 on admission , -Cr mildly worse 1.28 today, will stop IVF and monitor, -zofran for n/v -renally adjust meds, avoid renal toxins -Kidney function and nausea vomiting were markedly improved day of discharge Chronic, stable chronic n/v, continue anti-nausea med as above CAD, continue aspirin, home med HTN resume home meds dispo:home diet:general Full code Exam Vital Signs (Last) Date Time Temp Pulse Resp B/P Pulse Ox O2 Delivery O2 Flow Rate FiO2 04/03/17 05:23 75 174/74 04/03/17 04:45 37.1 19 95 Room Air Test 04/01/17 11:30 04/02/17 05:55 04/03/17 05:55 Lactic Acid Level 1.4mmol/L (0.4-2.0) Phosphorus Level 2.6mg/dL (2.5-4.9) Magnesium Level 1.7mg/dL (1.6-2.6) White Blood Count 11.8th/mm3 (3.8-10.1) Red Blood Count 3.40mil/mm3 (3.90-5.20) Hemoglobin 10.2g/dL (12.0-15.6) Hematocrit 29.9% (35.0-46.0) Mean Corpuscular Volume 87.9fL (81-100) Mean Corpuscular Hemoglobin 30.0pg (27.0-35.0) Mean Corpuscular Hemoglobin Concent 34.1% (32.0-37.0) Red Cell Distribution Width 13.1% (12.3-15.4) Platelet Count 217bil/L (150-400) Neutrophils (%) (Auto) 78.5% (40-74) Lymphocytes (%) (Auto) 15.3% (14-46) Monocytes (%) (Auto) 4.8% (4-12) Eosinophils (%) (Auto) 1.0% (0-5) Basophils (%) (Auto) 0.2% (0-3) Sodium Level 140mEq/L (134-144) Potassium Level 3.4mEq/L (3.5-5.2) Chloride Level 106mEq/L (97-108) Carbon Dioxide Level 18mmol/L (18-29) Blood Urea Nitrogen 18mg/dL (8-27) Creatinine 1.18mg/dL (0.57-1.00) Estimat Glomerular Filtration Rate 63mL/min (>59) Glucose Level 102mg/dL (60-99) Calcium Level 7.6mg/dL (8.5-10.1) Total Bilirubin 0.3mg/dL (0.0-1.2) Aspartate Amino Transf (AST/SGOT) 19U/L (0-50) Alanine Aminotransferase (ALT/SGPT) 11U/L (0-32) Alkaline Phosphatase 60U/L (25-165) Total Protein 5.1g/dL (6.4-8.4) Albumin 3.3g/dL (3.4-5.0) Procalcitonin 1.50ng/mL (0.00-0.08) Discharge Medications Discharge Medications Amoxicillin/Clav K 875-125 mg (Augmentin 875-125 mg) 1 Each Tablet 1 TABLET PO BID Prescribed by: HANNY MONTALVO MD Aspirin (Aspirin) 81 Mg Tablet 81 MG PO DAILY (Reported) Lactobacillus Acidophilus (Acidophilus Probiotic) 0.5 Mg (100 Million Cell) Tablet 0.5 MG PO BID Prescribed by: HANNY MONTALVO MD Levothyroxine (Levothyroxine) 88 Mcg Tablet 88 MCG PO DAILY (Reported) Metoprolol Tartrate (Metoprolol Tartrate) 25 Mg Tablet 25 MG PO BID (Reported) Omeprazole (Omeprazole) 20 Mg Capsule.dr 20 MG PO DAILY (Reported) Sertraline HCl (Sertraline) 50 Mg Tablet 50 MG PO DAILY (Reported) Simvastatin (Simvastatin) 40 Mg Tablet 40 MG PO DAILY (Reported) Trazodone (Trazodone) 50 Mg Tablet 150 MG PO HS (Reported) As needed Lorazepam (Lorazepam) 0.5 Mg Tablet 0.5 MG PO Q12H PRN PRN For Anxiety (Reported ) Promethazine (Promethazine) 25 Mg Tablet 25 MG PO TID PRN PRN For Nausea ( Reported) Followup Plan Discharge Diet: Heart Healthy Discharge Activity: No restrictions Follow-up Provider: Rui Jolly MD Follow-up with PCP in: Other (early next week ,sooner if problems) Time spent 60 minutes Hanny Montalvo MD Apr 03, 2017 16:47
== END 2017-04-03 14:33 | disposition home or self-care (01) | DRG 603 ==
LOC: SED 10:04 → MPC 13:00
PROVIDERS: ADMIT Internal Medicine; ATTEND Internal Medicine
DX: L03.114 Cellulitis of left upper limb (principal); N17.8 Other acute kidney failure; Z95.5 Presence of coronary angioplasty implant and graft; W55.01XA Bitten by cat, initial encounter; R11.2 Nausea with vomiting, unspecified; I25.10 Atherosclerotic heart disease of native coronary artery without angina pectoris; N18.9 Chronic kidney disease, unspecified; I12.9 Hypertensive chronic kidney disease with stage 1 through stage 4 chronic kidney disease, or unspecified chronic kidney disease

== ENCOUNTER 2017-04-22 11:29 | Emergency (ER) | payer MEDICARE ==
[~2017-04-22] VITALS: Ht 162.6 cm; Wt 61.4 kg
[~2017-04-22 11:29] MED LIST changes: +AMOX-366 PO; +ASPI-973 PO; +LACT0.5T PO; -ONDA-53 PO; -RANI300T4 PO; -TRAM50TA2 PO
[2017-04-22 11:41] VITALS: BP 169/66; PULSE 82; RESP 12; O2SAT 97
--- NOTE | 2017-04-22 11:41 | ED.REPORT ---
HPI-Chest Pain 40 and Over Date of Service Apr 22, 2017 ED Provider: Dr. Wolf The pt is an 86 y/o female with a hx of CAD (stent placed 12 years ago) and HTN presenting to the ED via EMS complaining of rapid heart rate that lasted about an hour, onset 2 hours ago. The cotton ginner helper at [facility] recorded her pulse at 120. She denies chest pain, shortness of breath , lightheadedness, and dizziness. She has never experienced simlar sx before. Her sx are not similar to the time her stent was placed. At that time, she also experienced chest pain. She is asymptomatic in the ED and states she feels fine now. Nursing Notes Stated Complaint: RAPID HEART RATE Nursing Notes Reviewed: Yes Allergies: Coded Allergies: amoxicillin (Verified Allergy, Mild, LIPS BLISTER, 03/04/17) Scheduled Amoxicillin/Clav K 875-125 mg (Augmentin 875-125 mg) 1 Each Tablet 1 TABLET PO BID Aspirin (Aspirin) 81 Mg Tablet 81 MG PO DAILY Lactobacillus Acidophilus (Acidophilus Probiotic) 0.5 Mg (100 Million Cell) Tablet 0.5 MG PO BID Levothyroxine (Levothyroxine) 88 Mcg Tablet 88 MCG PO DAILY Metoprolol Tartrate (Metoprolol Tartrate) 25 Mg Tablet 25 MG PO BID Omeprazole (Omeprazole) 20 Mg Capsule.dr 20 MG PO DAILY Sertraline HCl (Sertraline) 50 Mg Tablet 50 MG PO DAILY Simvastatin (Simvastatin) 40 Mg Tablet 40 MG PO DAILY Trazodone (Trazodone) 50 Mg Tablet 150 MG PO HS Scheduled PRN Lorazepam (Lorazepam) 0.5 Mg Tablet 0.5 MG PO Q12H PRN PRN For Anxiety Promethazine (Promethazine) 25 Mg Tablet 25 MG PO TID PRN PRN For Nausea General Time Seen by MD: 11:55 Chief Complaint Other (rapid heart rate) Hx Obtained From: Patient Arrived By: Walk-in Sudden in Onset?: Yes Onset Occurred: 1 - 4 hours ago Symptom Duration: 1 - 4 hours Severity: Current: No pain currently Severity: Maximum: No pain Recent Healthcare: No recent doctor visit Similar Sx Previous: No Past Medical History Past Medical History Reports: Coronary artery disease, Hypertension Past Surgical History Cardic Stent Reports: Appendectomy Reports: Tubal ligation Social History Alcohol Use: "Social" Drug Use: Denies drug use Other Social History: Local resident Occupation lives by self. Ambulatory Status Independent Review of Systems Reports: rapid heart rate Respiratory: Denies: Shortness of breath Cardiovascular: Denies: Chest pain Neurologic: Denies: Dizziness, Lightheaded Complete sys rev & neg: except as marked. Physical Exam Initial Vital Signs Vital Signs (First) Date Time Temp Pulse Resp B/P Pulse Ox O2 Delivery O2 Flow Rate FiO2 04/22/17 11:41 36.7 82 12 169/66 97 Room Air Initial VS: Reviewed Head / Eyes: Atraumatic, Normocephalic Neck: Supple, Non-tender, Full range of motion Extremities: Vascular intact, Neuro intact, No swelling, No tenderness Skin: Warm, Dry, No cyanosis Neurologic: Alert, Oriented, Nonfocal General/Constitutional: Awake, Alert, No acute distress, Well appearing Respiratory / Chest: Atraumatic, Breath sounds NL, Breath sounds = bilat, No respiratory distress, No rales, No rhonchi, No wheezing Cardiovascular: Heart rate NL, Regular rhythm, Heart sounds NL, No gallop, No murmurs, No rubs Abdomen: Atraumatic, Soft, Non-tender, No guarding, No rebound Interpretation & Diagnostics Lab Results Interpretation Result Diagram: 04/22/17 1202 04/22/17 1202 Test 04/22/17 12:02 White Blood Count 10.6th/mm3 (3.8-10.1) Red Blood Count 3.82mil/mm3 (3.90-5.20) Hemoglobin 11.4g/dL (12.0-15.6) Hematocrit 33.3% (35.0-46.0) Mean Corpuscular Volume 87.2fL (81-100) Mean Corpuscular Hemoglobin 29.8pg (27.0-35.0) Mean Corpuscular Hemoglobin Concent 34.2% (32.0-37.0) Red Cell Distribution Width 13.5% (12.3-15.4) Platelet Count 307bil/L (150-400) Neutrophils (%) (Auto) 81.7% (40-74) Lymphocytes (%) (Auto) 10.8% (14-46) Monocytes (%) (Auto) 6.5% (4-12) Eosinophils (%) (Auto) 0.5% (0-5) Basophils (%) (Auto) 0.3% (0-3) Prothrombin Time 10.8sec (8.1-12.5) Prothromb Time International Ratio 1.01ratio D-Dimer 0.98mg/L FEU (<0.50) Sodium Level 138mEq/L (134-144) Potassium Level 3.8mEq/L (3.5-5.2) Chloride Level 102mEq/L (97-108) Carbon Dioxide Level 20mmol/L (18-29) Blood Urea Nitrogen 22mg/dL (8-27) Creatinine 1.19mg/dL (0.57-1.00) Estimat Glomerular Filtration Rate 62mL/min (>59) Glucose Level 167mg/dL (60-99) Lactic Acid Level 1.3mmol/L (0.4-2.0) Calcium Level 8.9mg/dL (8.5-10.1) Magnesium Level 1.8mg/dL (1.6-2.6) Total Bilirubin 0.4mg/dL (0.0-1.2) Aspartate Amino Transf (AST/SGOT) 21U/L (0-50) Alanine Aminotransferase (ALT/SGPT) 12U/L (0-32) Alkaline Phosphatase 80U/L (25-165) Troponin T 0.010ug/L (0.0-0.011) Pro-B-Type Natriuretic Peptide 380.5pg/mL (0-738) Total Protein 6.8g/dL (6.4-8.4) Albumin 4.3g/dL (3.4-5.0) Lipase 17U/L (13-60) ECG Interpretation ECG Interpretation: Normal sinus rhythm. Rate 77. Left bundle branch block Time: 11:52 Interpreted by: ED physician X-Ray Chest Interpretation Chest Xray Interpretation: IMPRESSION: Negative chest. No acute cardiopulmonary process is evident. Dictated by: Shade Miranda M.D. on 04/22/2017 at 11:44 Approved by: Shade Miranda M.D. on 04/22/2017 at 11:44 View: Portable, AP & lat Interpretation / Wet Read by: Interpret - Radiologist CT Chest Interpretation IMPRESSION: 1. No pulmonary embolus. 2. Thick, partially calcified biapical pleural plaques. Recommend PET/CT scan to differentiate neoplastic process from pleural-parenchymal scarring. Dictated by: Zoey Barnes MD, PhD on 04/22/2017 at 13:38 Approved by: Zoey Barnes MD, PhD on 04/22/2017 at 13:44 Study type: CT pulm angiogram Interpretation / Wet Read by: Interpret - Radiologist Re-Eval/Medical Decision Med Decision/Clinical Course Self-limited episode of tachycardia without high risk features such as chest pain, shortness of breath, or near syncope. Patient is now asymptomatic and wishes to go home. PCP is contacted to help establish close follow-up care. Return and follow-up precautions given. Source of Hx: Old records Time of Eval: 13:59 Re-Evaluation/Progress Note: Rechecked pt. Discussed lab results, imaging results, diagnosis and plan to discharge. Pt understands and agrees with the plan. F/U instruction and RTER warning given. All questions addressed. Consultation : Referral / Consult Name: Rui Jolly MD Consulted With: Primary care physician Call Returned at: 14:02 Preservative Filler Machine Operator: Will see in office, Agrees with eval, Agrees with plan Note: Dr. Jolly will set up referral and holter monitor. Counseled Regarding: Diagnosis, Lab results, Need for follow-up, When/why to return to ED Discharge & Departure Primary Impression: Palpitation Disposition: Home Discharge Condition All VS Reviewed: Yes Condition: Stable Additional Instructions: Call your doctor today for a close follow-up. He should be ordering a Holter monitor for you. Return to the ER if you develop palpitations or heart racing lasting for more than 10 minutes, syncope, severe chest pain, or other concerns. Referrals: Rui Jolly MD (PCP) Scribe Attestation Portions of this note were transcribed by Syed Lin. I,, personally performed the history,physical exam and medical decision-making;I reviewed and confirmed the accuracy of the information in the transcribed note. Signed by Kirti Gr. 04/22/17 copies to: Rui Jolly MD, Timothy Britton MARCANO Apr 22, 2017 11:41 Syed Lin Apr 22, 2017 11:53
[2017-04-22 12:13] LABS: BASOPHILS % (AUTO) 0.3 % (0-3); EOSINOPHILS % (AUTO) 0.5 % (0-5); MONOCYTES % (AUTO) 6.5 % (4-12); Mean Corpuscular Hemoglobin 29.8 pg (27.0-35.0); Mean Corpuscular Volume 87.2 fL (81-100); NEUTROPHILS % (AUTO) 81.7 % (40-74); Platelet Count 307 bil/L (150-400)
[2017-04-22 12:26] LABS: INR 1.01 ratio
[2017-04-22 12:34] LABS: TROPONIN T 0.01 ug/L (0.0-0.011)
[2017-04-22 12:45] LABS: Magnesium 1.8 mg/dL (1.6-2.6)
--- NOTE | 2017-04-22 12:46 | DRSVH ---
PROCEDURE: X-RAY CHEST, TWO VIEWS ([id number]) INDICATIONS: palpitations TECHNIQUE: 2 views of the chest were acquired. COMPARISON: [facility], , CHEST 1VW (PORTABLE), 03/17/2012, 20:18. FINDINGS: Surgical changes and devices: None. Lungs and pleura: No pleural effusions or pneumothorax. Lungs are clear. Mediastinum: Mediastinal contours are normal. Heart size is normal. There is aortic atherosclerosi s. Bones and chest wall: No suspicious bony abnormalities. Age-appropriate degenerative changes of the spine are present. Soft tissues appear unremarkable. IMPRESSION: Negative chest. No acute cardiopulmonary process is evident. Dictated by: Shade Miranda M.D. on 04/22/2017 at 11:44 Approved by: Shade Miranda M.D. on 04/22/2017 at 11:44
--- NOTE | 2017-04-22 13:46 | DRSVH ---
PROCEDURE: CT ANGIO CHEST PULMONARY EMBOLISM ([id number]) INDICATIONS: palpitations, elevated ddimer TECHNIQUE: After the administration of intravenous contrast, 2 mm thick sections acquired from the pulmonary api frances to the posterior costophrenic angles. 3-dimensional maximum intensity projection (MIP) coronal a nd sagittal reformats were then acquired through the thorax. For radiation dose reduction, the follo wing was used: automated exposure control, adjustment of mA and/or kV according to patient size. COMPARISON: None. FINDINGS: Image quality: Excellent. Pulmonary arteries: Pulmonary arteries are normal in size, and demonstrate no intraluminal filling d efects to suggest central pulmonary embolism. Lungs and pleura: Atelectasis noted in the dependent portion of the lungs. Partially calcified, thick pleural plaques noted in lung apices. No pleural effusions or pneumothorax. Central and peripheral airways are patent. Mediastinum: Heart size is normal, without pericardial effusion. Gallbladder is sonographically norm al. No gallstones. No gallbladder wall thickening. No pericholecystic fluid. No sonographic Carty si gn. No mediastinal or hilar adenopathy. Thoracic aorta is normal in caliber and enhancement. Esopha isabella is normal in caliber, without hiatal hernia. Bones and chest wall: No suspicious bony lesions. Left 10th rib fracture is noted. Spine degenerativ e disc disease and facet arthropathy. Thyroid gland is within normal limits. No axillary or supracla vicular adenopathy. Abdomen: Visualized upper abdominal solid organs appear normal in the early arterial phase of enhanc ement. IMPRESSION: 1. No pulmonary embolus. 2. Thick, partially calcified biapical pleural plaques. Recommend PET/CT scan to differentiate neopla stic process from pleural-parenchymal scarring. Dictated by: Zoey Barnes MD, PhD on 04/22/2017 at 13:38 Approved by: Zoey Barnes MD, PhD on 04/22/2017 at 13:44
[2017-04-22 14:25] VITALS: BP 198/93; PULSE 75; RESP 18; O2SAT 100
== END 2017-04-22 14:27 | disposition home or self-care (01) ==
LOC: EDUNIT# 11:29 → SED 11:29 → EDBD 11:29 → SED 14:27
DX: R00.2 Palpitations (principal); I10 Essential (primary) hypertension; I25.10 Atherosclerotic heart disease of native coronary artery without angina pectoris; Z98.51 Tubal ligation status; Z90.89 Acquired absence of other organs; Z95.5 Presence of coronary angioplasty implant and graft; Z79.82 Long term (current) use of aspirin; Z88.0 Allergy status to penicillin
CPT/HCPCS: 36415; 71020; 71275; 80053; 83605; 83690; 83735; 83880; 84484; 85025; 85378; 85610; 93005; 99285; Q9967

== ENCOUNTER 2017-05-12 09:58 | Emergency (ER) | payer MEDICARE ==
[~2017-05-12] VITALS: Ht 162.6 cm; Wt 59.1 kg
[2017-05-12 10:03] VITALS: BP 182/95; PULSE 114; RESP 20; O2SAT 99
--- NOTE | 2017-05-12 10:10 | ED.REPORT ---
HPI-Chest Pain 40 and Over Date of Service May 12, 2017 ED Provider: Stephen Wolf DO Pt is an 86 y/o female w/ a hx of CAD s/p stenting, HTN, HLD, hypothyroid, presenting to the ED c/o rapid palpitations onset this morning. The patient was seen here in the ED on Apr 22, 2017 for similar symptoms of palpitations and there was no irregular rhythm found on monitor or EKG. Her PCP Dr. Jolly was consulted during that visit and made a plan to see the patient in follow-up and schedule a Holter monitor. She was seen by her PCP in follow-up 2 days ago at which point her visit was reassuring. She has an appointment to see a director medical writing in 3 days to have a Holter monitor started. Pt denies CP, lightheadedness, SOB. She didn't take her Metoprolol this morning. Nursing Notes Stated Complaint: RAPID PULSE Chief Complaint: Dysrhythmia/Cardiac Nursing Notes Reviewed: Yes Allergies: Coded Allergies: amoxicillin (Verified Allergy, Mild, LIPS BLISTER, 05/12/17) Scheduled Amoxicillin/Clav K 875-125 mg (Augmentin 875-125 mg) 1 Each Tablet 1 TABLET PO BID Aspirin (Aspirin) 81 Mg Tablet 81 MG PO DAILY Lactobacillus Acidophilus (Acidophilus Probiotic) 0.5 Mg (100 Million Cell) Tablet 0.5 MG PO BID Levothyroxine (Levothyroxine) 88 Mcg Tablet 88 MCG PO DAILY Metoprolol Tartrate (Metoprolol Tartrate) 25 Mg Tablet 25 MG PO BID Omeprazole (Omeprazole) 20 Mg Capsule.dr 20 MG PO DAILY Sertraline HCl (Sertraline) 50 Mg Tablet 50 MG PO DAILY Simvastatin (Simvastatin) 40 Mg Tablet 40 MG PO DAILY Trazodone (Trazodone) 50 Mg Tablet 150 MG PO HS Scheduled PRN Lorazepam (Lorazepam) 0.5 Mg Tablet 0.5 MG PO Q12H PRN PRN For Anxiety Promethazine (Promethazine) 25 Mg Tablet 25 MG PO TID PRN PRN For Nausea General Time Seen by MD: 10:08 Chief Complaint Other (palpitations) Hx Obtained From: Patient Arrived By: Walk-in Sudden in Onset?: Yes Onset Occurred: 1 - 4 hours ago Symptom Duration: Since onset Severity: Current: No pain currently Severity: Maximum: No pain Recent Healthcare: Recent doctor visit, Recent testing, Previous diagnosis, Prior workup Similar Sx Previous: Yes Past Medical History Past Medical History CAD Hypertension Palpitations - unclear etiology so far 05/12/17 - plan to be on Holter monitor soon Hypothyroid Hyperlipidemia GERD Past Surgical History Cardic Stent Reports: Appendectomy Reports: Tubal ligation Social History Alcohol Use: "Social" Drug Use: Denies drug use Other Social History: Local resident Occupation lives by self. Ambulatory Status Independent Review of Systems Constitutional: Denies: Chills, Fever Respiratory: Denies: Shortness of breath Cardiovascular: Reports: Palpitations, Denies: Chest pain GI: Denies: Abdominal pain Neurologic: Denies: Change LOC, Lightheaded Complete sys rev & neg: except as marked. Physical Exam Initial Vital Signs Vital Signs (First) Date Time Temp Pulse Resp B/P Pulse Ox O2 Delivery O2 Flow Rate FiO2 05/12/17 10:03 36.6 114 20 182/95 99 Room Air Initial VS: Reviewed, Vital signs abnormal Head / Eyes: Atraumatic, Normocephalic ENT: Mucous membranes moist, Conjunctiva normal Neck: Full range of motion Extremities: Vascular intact, Neuro intact, No swelling Skin: Warm, Dry, No cyanosis Neurologic: Alert, Oriented, Nonfocal Psychiatric: Mood/affect normal, Behavior normal, Normal thought content General/Constitutional: Awake, Alert, No acute distress, Well appearing, Cooperative, Not toxic appearing Respiratory / Chest: Breath sounds NL, Breath sounds = bilat, No respiratory distress, No rales, No rhonchi, No wheezing, No stridor Cardiovascular: Heart rate NL, Regular rhythm, Heart sounds NL, No gallop, No murmurs, No rubs, Cap refill not delayed, Peripheral circulation NL, Pulses = bilaterally Abdomen: Soft, Non-tender Interpretation & Diagnostics ECG Interpretation ECG Interpretation: Normal sinus rhythm LBBB Same as prior 04/22/17 Time: 10:29 Interpreted by: ED physician Normal ECG Interpretation: No change from prior ECGs X-Ray Chest Interpretation Chest Xray Interpretation: IMPRESSION: Acute disease is not seen in the upright portable chest. Dictated by: Faraz Byrne M.D. on 05/12/2017 at 10:33 Approved by: Faraz Byrne M.D. on 05/12/2017 at 10:47 View: Portable Interpretation / Wet Read by: Interpret - Radiologist Re-Eval/Medical Decision Med Decision/Clinical Course Sinus tachycardia after not taking her morning metoprolol. Otherwise he symptomatic. Given a dose metoprolol. Recommended to the patient that she get a Mediset in order to keep better track of taking medications. Return and follow-up precautions given. Source of Hx: Old records Time of Eval: 10:33 Re-Evaluation/Progress Note: Pt rechecked. She is agreeable to leave without obtaining labs given normal workup recently and no other symptoms. Will bring EKGs to cardiology visit. Informed pt of plan for discharge. Pt understands and agrees with plan for discharge. F/U instructions and RTER warnings given. All questions addressed. Counseled Regarding: Diagnosis, Need for follow-up, When/why to return to ED Discharge & Departure Primary Impression: Tachycardia Disposition: Home Discharge Condition All VS Reviewed: Yes Condition: Stable Patient Instructions: Angina (ED) Additional Instructions: Be sure to take your metoprolol twice a day as prescribed. Follow-up with your regular doctor and director medical writing as planned Return to the ER as needed. Referrals: Rui Jolly MD (PCP) Scribe Attestation Portions of this note were transcribed by [place]. I, Dr. Wolf personally performed the history, physical exam and medical decision-making; I reviewed and confirmed the accuracy of the information in the transcribed note. copies to: Rui Jolly MD, Timothy S DO May 12, 2017 10:10 RANCHO LYNN May 12, 2017 10:16
[2017-05-12 10:36] VITALS: BP 143/69; PULSE 94
--- NOTE | 2017-05-12 10:48 | DRSVH ---
PROCEDURE: X-RAY CHEST ONE VIEW, PORTABLE ([id number]) INDICATIONS: palpitations TECHNIQUE: One view of the chest was acquired. COMPARISON: [facility], CR, XR CHEST 2VW, 04/22/2017, 12:32. FINDINGS: Surgical changes and devices: quality assurance monitor final leads are seen over the chest. Lungs and pleura: No pleural effusions or pneumothorax. Lungs are clear. Mediastinum: Mediastinal contours appear normal. Heart size is normal. Bones and chest wall: No suspicious bony lesions. Overlying soft tissues appear unremarkable. IMPRESSION: Acute disease is not seen in the upright portable chest. Dictated by: Faraz Byrne M.D. on 05/12/2017 at 10:33 Approved by: Faraz Byrne M.D. on 05/12/2017 at 10:47
== END 2017-05-12 10:38 | disposition home or self-care (01) ==
LOC: SED 09:58
DX: R00.0 Tachycardia, unspecified (principal); R00.2 Palpitations; I10 Essential (primary) hypertension; I25.10 Atherosclerotic heart disease of native coronary artery without angina pectoris; E03.9 Hypothyroidism, unspecified; E78.5 Hyperlipidemia, unspecified; K21.9 Gastro-esophageal reflux disease without esophagitis; Z79.82 Long term (current) use of aspirin; Z95.5 Presence of coronary angioplasty implant and graft; Z88.1 Allergy status to other antibiotic agents